=== PATIENT | female | born 1940 | race Caucasian/White ===

== ENCOUNTER 2016-07-14 00:31 | Emergency (ER) | payer MEDICARE, OTHER ==
[2016-07-14] MEDS ORDERED: metroNIDAZOLE 250 MG TABLET PO STA (02:22)
[2016-07-14] MEDS ORDERED: CIPROFLOXACIN 250 MG TABLET PO STA (02:22)
[2016-07-14] MEDS ORDERED: metroNIDAZOLE 250 MG TABLET PO ONE (02:26)
[2016-07-14] MEDS ORDERED: CIPROFLOXACIN 250 MG TABLET PO ONE (02:26)
== END 2016-07-14 02:41 | disposition home or self-care (01) ==
DX: K57.32 Diverticulitis of large intestine without perforation or abscess without bleeding (principal)
CPT/HCPCS: 36415; 74176; 80053; 81001; 83690; 85025; 87086; 99283; 99284; A9270

== ENCOUNTER 2016-12-27 07:39 | Outpatient (CLI) | payer MEDICARE, OTHER ==
[2016-12-27 14:01] LABS: BASOPHILS % (AUTO) 0.9 %; EOSINOPHILS # (AUTO) 0.1 10^3/uL (0.0-0.7); EOSINOPHILS % (AUTO) 1.9 %; HCT - HEMATOCRIT 41.6 % (37.0-47.0); HGB - HEMOGLOBIN 14.1 g/dL (12.0-16.0); LYMPHOCYTES # (AUTO) 1.5 10^3/uL (1.5-3.5); LYMPHOCYTES % (AUTO) 39.1 %; MEAN CORPUSCULAR HEMOGLOBIN 30.3 pg (27.0-31.0); MEAN CORPUSCULAR HGB CONC 33.9 g/dL (32.0-36.0); MEAN CORPUSCULAR VOLUME 89.2 fL (81.0-99.0); MONOCYTES # (AUTO) 0.3 10^3/uL (0.0-1.0); MONOCYTES % (AUTO) 7.1 %; NUCLEATED RED BLOOD CELLS AUTO 0.1 /100WBC; RED BLOOD COUNT 4.66 10^6/uL (4.20-5.40); RED CELL DISTRIBUTION WIDTH 14.1 % (12.0-15.0); UNCORRECTED WHITE BLOOD COUNT 3.9 x10^3/uL; WHITE BLOOD COUNT 3.9 x10^3/uL (4.8-10.8)
[2016-12-27 14:18] LABS: ALBUMIN/GLOBULIN RATIO 1.5 (1.0-2.2); BILIRUBIN,TOTAL 1.1 mg/dL (0.2-1.0); CREATININE 0.5 mg/dL (0.4-1.0); POTASSIUM 3.9 mmol/L (3.5-5.0); TOTAL PROTEIN 7.1 g/dL (6.7-8.2)
== END 2016-12-27 07:40 | disposition home or self-care (01) ==
LOC: LAB.N 07:39
PROVIDERS: ATTEND Internal Medicine
DX: K75.9 Inflammatory liver disease, unspecified (principal)
CPT/HCPCS: 36415; 80053; 85025

== ENCOUNTER 2017-01-04 09:33 | Outpatient (CLI) | payer MEDICARE, OTHER ==
--- NOTE | 2017-01-04 16:18 | XRAY Report ---
COMPLETE LUMBAR SPINE: 01/04/2017 CLINICAL INDICATION: Low back pain. COMPARISON: 05/18/2007. FINDINGS: AP, lateral, oblique, and coned down views of the lumbar spine demonstrate progression of degenerative disk and facet disease. Disk space narrowing is worst at L4-5. There is degenerative S-s haped scoliosis. No compression fracture is seen. There is grade 0 anterolisthesis of L4 on L5, due t o facet arthropathy. The bowel gas pattern is normal. IMPRESSION: PROGRESSION OF DEGENERATIVE DISK AND FACET DISEASE, NOW WITH S-SHAPED SCOLIOSIS. JOB #: [id number] EXT JOB #:[id number]
== END 2017-01-04 09:34 | disposition home or self-care (01) ==
LOC: DI 09:33
PROVIDERS: ATTEND Internal Medicine
DX: M51.36 Other intervertebral disc degeneration, lumbar region (principal); M47.9 Spondylosis, unspecified; M41.86 Other forms of scoliosis, lumbar region
CPT/HCPCS: 72110

== ENCOUNTER 2017-01-13 13:00 | Outpatient (CLI) | payer MEDICARE, OTHER ==
--- NOTE | 2017-01-13 16:05 | DEXA Report ---
DEXA SCAN: 01/13/2017 CLINICAL INDICATION: Postmenopausal. TECHNIQUE: Dual energy x-ray absorptiometry (DXA) was performed on a [employer] system. Regions measured are the AP spine, femoral neck, and, if needed, forearm. COMPARISON: None. In accordance with the International Society for Clinical Densitometry (ISCD) guidelines, data from previous exams may be reanalyzed using current recommendations and techniques. This is done to allow a more accurate basis for comparison with the current study. FINDINGS: The data for the lumbar spine is as follows: REGION BMD (g/cm/cm) T-SCORE Z-SCORE L1 1.064 -0.6 1.2 L2 1.232 0.3 2.0 L3 1.417 1.8 3.5 L4 1.203 0.0 1.7 TOTAL 1.231 0.4 2.1 NOTE: All evaluable vertebrae are used for classification. The data for the hip is as follows: REGION BMD (g/cm/cm) T-SCORE Z-SCORE Neck 0.926 -0.8 1.1 TOTAL 0.857 -1.2 0.6 NOTE: The femoral neck or total proximal femur, whichever is lowest, is used for classification. IMPRESSION: THE WHO CLASSIFICATION BASED ON THE INTERNATIONAL REFERENCE STANDARD IS OSTEOPENIA. THE FRACTURE RISK IS INCREASED. RECOMMENDATION: Patients with diagnosis of osteoporosis or osteopenia should have regular bone mineral density assessment. For those eligible for Medicare, routine testing is allowed once every 2 years. Testing frequency can be increased for patients who have rapidly progressing disease or for those who are receiving medical therapy to restore bone mass. COMMENT: World Health Organization (WHO) definitions for osteoporosis and osteopenia: NORMAL BMD: T-score at -1.0 or higher, fracture risk is low. OSTEOPENIA BMD: T-score between -1.0 and -2.5, fracture risk is increased. OSTEOPOROSIS BMD: T-score at -2.5 or lower, fracture risk high. National Osteoporosis Foundation recommends: 1. Obtain adequate dietary calcium (at least 1200 mg per day) and vitamin D (400 -800 international units per day). 2. Participate, as appropriate, in regular weightbearing and muscle- strengthening exercise. 3. Avoid tobacco use and reduce alcohol and caffeine intake. 4. For more detailed information see the website at www.NOF.org. MTDD
== END 2017-01-13 13:01 | disposition home or self-care (01) ==
LOC: DI 13:00
PROVIDERS: ATTEND Internal Medicine
DX: M85.88 Other specified disorders of bone density and structure, other site (principal)
CPT/HCPCS: 77080

== ENCOUNTER 2017-09-14 14:30 | Outpatient (CLI) | payer MEDICARE, OTHER ==
--- NOTE | 2017-09-14 16:51 | MRI Report ---
EXAM: MRI LUMBAR SPINE WITHOUT CONTRAST EXAM DATE: 09/14/2017 03:21 PM. CLINICAL HISTORY: Chronic low back pain. COMPARISON: Lumbar spine radiography from 01/04/2017. TECHNIQUE: Multiplanar, multisequence T1-weighted and fluid-sensitive sequences of the lumbar spine f rom T12 to S1 without contrast. Other: None. FINDINGS: Spinal Cord: The conus terminates at L1-L2. The conus medullaris and cauda equina are unremarkable. Alignment: Grade 1 anterolisthesis at L4-L5 by approximately 4 mm, and at L3-L4 by approximately 2 mm . Right lateral listhesis of L3 on L4 by approximately 5 mm. Left lateral listhesis of L1 on L2 by ap proximately 5 mm. Bone Marrow: Five gnl-eys-mlaagop lumbar vertebral bodies are assumed. There is an hemangioma within the L4 vertebral body. Disk Levels/Facets: L5-S1: Moderate lateral disk space narrowing. Mild central disk space narrowing. Rnob-vy-ovmnboie rig ht facet arthropathy. Mild right foraminal stenosis. No canal stenosis. L4-L5: Small left foraminal disk protrusion. Moderate to severe ligamentum flavum thickening. Moderat e left and severe right facet arthropathy. Small left facet joint effusion. Mild to moderate canal st enosis. Auue-zt-gmvzdpph right and mild left foraminal stenoses. L3-L4: Small posterior disk bulge. Small left foraminal and extraforaminal disk bulge. Moderate to se bella ligamentum flavum thickening. Moderate facet arthropathy. Small facet joint effusions. Mild-to-m oderate canal stenosis. Ytgn-xr-dfugkrez foraminal stenoses. L2-L3: Degenerative endplate changes, left more than right. Severe left-sided and moderate right-side d disk space narrowing. Small circumferential disk bulge/osteophyte complex. Moderate to severe ligam entum flavum thickening. Paic-fx-iqfntfba left and mild right facet arthropathy. Bjmy-ll-ommcauvw can al stenosis. Moderate to severe left and moderate right subarticular zone stenoses. Mild right and mo derate left foraminal stenoses. L1-L2: Moderate disk space narrowing. Small disk bulge. Moderate ligamentum flavum thickening. Mild-t o-moderate facet arthropathy. Mild canal stenosis. Mild left and fsra-ro-huhlxygx right foraminal sandee noses. T12-L1: Unremarkable. Musculature: Jgks-jc-ciuvkfap fatty atrophy of the posterior paraspinal process. Other: The partially visualized retroperitoneum is unremarkable. IMPRESSION: 1. Multilevel degenerative disk changes, ligamentum flavum thickening, facet arthropathy, and osteoph ytosis. There are varying degrees of stenoses. Please see above for level by level details. 2. Grade 1 degenerative anterolisthesis at L3-L4 and L4-L5. Right lateral listhesis of L3 on L4 and l eft lateral listhesis of L1 on L2. Comment: The following findings are so common in adults without low back pain that while we report th eir presence, they must be interpreted with caution and in the context of the clinical situation. (Re rd Drake et al, Spine 2001) Prevalence of findings in patients without low back pain: Disk degeneration (any evidence): 92% Disk desiccation/T2 signal loss: 83% Disk height loss: 56% Disk bulge: 64% Disk protrusion: 32% Annular tear/high intensity zone: 38% [facility] Referring Provider Line: [phone] SITE ID: [id number]
== END 2017-09-14 14:31 | disposition home or self-care (01) ==
LOC: DI 14:30
PROVIDERS: ATTEND Internal Medicine
DX: M54.5 Low back pain (principal); M51.36 Other intervertebral disc degeneration, lumbar region; M25.78 Osteophyte, vertebrae
CPT/HCPCS: 72148

== ENCOUNTER 2018-02-14 07:40 | Outpatient (CLI) | payer MEDICARE, OTHER ==
[2018-02-14 13:12] LABS: ALBUMIN 4.2 g/dL (3.2-5.5); ALBUMIN/GLOBULIN RATIO 1.5 (1.0-2.2); BILIRUBIN,TOTAL 0.9 mg/dL (0.2-1.0); CALCIUM 9.1 mg/dL (8.5-10.3); CREATININE 0.7 mg/dL (0.4-1.0)
== END 2018-02-14 07:41 | disposition home or self-care (01) ==
LOC: LAB.N 07:40
PROVIDERS: ATTEND Internal Medicine
DX: K75.9 Inflammatory liver disease, unspecified (principal); Z79.899 Other long term (current) drug therapy; K21.9 Gastro-esophageal reflux disease without esophagitis; M19.90 Unspecified osteoarthritis, unspecified site
CPT/HCPCS: 36415; 80053; 84443

== ENCOUNTER 2018-03-20 08:11 | Outpatient (CLI) | payer MEDICARE, OTHER ==
--- NOTE | 2018-03-21 10:15 | Mammography Report ---
Reason: SCRENNING MAMMO Procedure Date: 03/20/2018 Accession Number: [id number] / [id number] Procedure: ROBERT - Screening Mammo Dig Bilat CPT Code: FULL RESULT: EXAM: Screening Mammo Dig Bilat DATE: 03/20/2018 10:48 AM CLINICAL HISTORY: 77-year-old female with family history of breast cancer in a cousin in their 60s presents for screening. TECHNIQUE: Bilateral CC and MLO views were obtained. COMPARISON: 02/04/2016, 02/24/2014, 12/06/2011, 11/25/2010. FINDINGS: The breasts demonstrate scattered fibroglandular densities bilaterally. Typically benign vascular calcifications are noted bilaterally. No suspicious masses, clustered microcalcifications, or regions of architectural distortion are identified. IMPRESSION: Benign findings RECOMMENDATION: Routine annual screening unless otherwise clinically indicated. BIRADS CATEGORY 2: Benign findings STANDARD QUALIFYING STATEMENTS: 1. This examination was not reviewed with the aid of Computer-Aided Detection (CAD). 2. A negative or benign imaging report should not delay biopsy if clinically suspicious findings are present. Consider surgical consultation if warranted. More than 5% of cancers are not identified by imaging. 3. Dense breasts may obscure an underlying neoplasm. 4. This examination was reviewed without the aid of 3D breast imaging (tomosynthesis).
== END 2018-03-20 08:12 | disposition home or self-care (01) ==
LOC: DI 08:11
PROVIDERS: ATTEND Internal Medicine
DX: Z12.31 Encounter for screening mammogram for malignant neoplasm of breast (principal); Z80.3 Family history of malignant neoplasm of breast
CPT/HCPCS: 77067

== ENCOUNTER 2018-06-21 08:00 | Outpatient (CLI) | payer MEDICARE, OTHER ==
[2018-06-21 14:23] LABS: BASOPHILS % (AUTO) 0.5 %; EOSINOPHILS # (AUTO) 0.1 10^3/uL (0.0-0.7); EOSINOPHILS % (AUTO) 2.3 %; HGB - HEMOGLOBIN 14.1 g/dL (12.0-16.0); LYMPHOCYTES # (AUTO) 1.6 10^3/uL (1.5-3.5); LYMPHOCYTES % (AUTO) 44.7 %; MEAN CORPUSCULAR HEMOGLOBIN 30.3 pg (27.0-31.0); MEAN CORPUSCULAR VOLUME 91.8 fL (81.0-99.0); MEAN PLATELET VOLUME 8.7 fL (7.9-10.8); MONOCYTES # (AUTO) 0.2 10^3/uL (0.0-1.0); MONOCYTES % (AUTO) 6.6 %; NEUTROPHILS # (AUTO) 1.7 10^3/uL (1.5-6.6); NEUTROPHILS % (AUTO) 45.9 %; PLT - PLATELET COUNT 210 10^3/uL (130-450); RED BLOOD COUNT 4.66 10^6/uL (4.20-5.40); RED CELL DISTRIBUTION WIDTH 14.8 % (12.0-15.0); WHITE BLOOD COUNT 3.7 x10^3/uL (4.8-10.8)
[2018-06-21 14:28] LABS: CALCIUM 8.9 mg/dL (8.5-10.3); CREATININE 0.6 mg/dL (0.4-1.0)
[2018-06-21 14:35] LABS: BILIRUBIN,URINE NEGATIVE (NEGATIVE); GLUCOSE, URINE (UA) NEGATIVE (NEGATIVE); KETONES,URINE (UA) NEGATIVE (NEGATIVE); LEUKOCYTE ESTERASE, URINE SMALL (NEGATIVE); NITRITE,URINE NEGATIVE (NEGATIVE); OCCULT BLOOD,URINE NEGATIVE (NEGATIVE); PROTEIN,URINE NEGATIVE (NEGATIVE); UROBILINOGEN,URINE 0.2 (NORMAL) E.U./dL (NORMAL)
[2018-06-21 14:39] LABS: CLARITY,URINE CLEAR (CLEAR)
== END 2018-06-21 23:59 | disposition home or self-care (01) ==
LOC: LAB.N 08:00
PROVIDERS: ATTEND Orthopaedic Surgery
DX: Z01.818 Encounter for other preprocedural examination (principal); N39.0 Urinary tract infection, site not specified; Z51.81 Encounter for therapeutic drug level monitoring
CPT/HCPCS: 36415; 80048; 81003; 85025; 85610

== ENCOUNTER 2019-10-11 08:11 | Outpatient (CLI) | payer MEDICARE, OTHER ==
--- NOTE | 2019-10-11 16:33 | DEXA Report ---
Reason: MENOPAUSE Procedure Date: 10/11/2019 Accession Number: [id number] / [id number] Procedure: DEX - Dexa Spine and/or Hip CPT Code: Final Report FULL RESULT: PROCEDURE: Dexa Spine and/or Hip INDICATIONS: MENOPAUSE TECHNIQUE: Dual energy x-ray absorptiometry (DXA) was performed on a [employer] System. Regions measured are the AP Spine, femoral neck, and if needed forearm. COMPARISON: DEXA 01/13/2017 FINDINGS: Lumbar Spine: Bone Mineral Density 1.343 g/cm/cm,T score 1.4, compared to 0.4 on prior exam, normal Left forearm radius: Bone Mineral Density 0.427 g/cm/cm, T score -4.1 , osteoporosis. Prior DEXA did not include forearm. (T score greater or equal to -1.0: NORMAL) (T score from -1.1 to -2.4: OSTEOPENIA) (T score less than or equal to -2.5 to: OSTEOPOROSIS) Impression: 1. Improved bone mineral density within the lumbar spine. 2. Apparent prominent osteoporosis of the radius as above. It is noted on prior exam, measurement was obtained of the femur and femoral neck. There has been interval bilateral hip arthroplasties. Patients with diagnosis of osteoporosis or osteopenia should have regular bone mineral density assessment. For those eligible for Medicare, routine testing is allowed once every 2 years. Testing frequency can be increased for patients who have rapidly progressing disease or for those who are receiving medical therapy to restore bone mass. Reviewed by: Michelle Sofia MD on 10/11/2019 4:32 PM PDT Approved by: Michelle Sofia MD on 10/11/2019 4:32 PM PDT Station ID: [id number]
--- NOTE | 2019-10-11 17:01 | DEXA Report ---
Reason: MENOPAUSE Procedure Date: 10/11/2019 Accession Number: [id number] / [id number] Procedure: DEX - Dexa Forearm CPT Code: Final Report FULL RESULT: PROCEDURE: Dexa Forearm INDICATIONS: MENOPAUSE TECHNIQUE: Dual energy x-ray absorptiometry (DXA) was performed on a [employer] System. Regions measured are the AP Spine, femoral neck, and if needed forearm. COMPARISON: DEXA 01/13/2017 FINDINGS: Lumbar Spine: Bone Mineral Density 1.343 g/cm/cm,T score 1.4, compared to 0.4 on prior exam, normal Left forearm: Bone Mineral Density 0.427 g/cm/cm, T score -4.1, osteoporosis. Prior exam was compared to left hip. (T score greater or equal to -1.0: NORMAL) (T score from -1.1 to -2.4: OSTEOPENIA) (T score less than or equal to -2.5 to: OSTEOPOROSIS) Impression: 1. Improved bone density within the lumbar spine. 2. Apparent osteoporosis within the left forearm. Patients with diagnosis of osteoporosis or osteopenia should have regular bone mineral density assessment. For those eligible for Medicare, routine testing is allowed once every 2 years. Testing frequency can be increased for patients who have rapidly progressing disease or for those who are receiving medical therapy to restore bone mass. Reviewed by: Michelle Sofia MD on 10/11/2019 4:59 PM PDT Approved by: Michelle Sofia MD on 10/11/2019 4:59 PM PDT Station ID: [id number]
== END 2019-10-11 08:12 | disposition home or self-care (01) ==
LOC: DI 08:11
PROVIDERS: ATTEND Family Medicine
DX: Z13.820 Encounter for screening for osteoporosis (principal); M81.0 Age-related osteoporosis without current pathological fracture; Z96.643 Presence of artificial hip joint, bilateral; Z78.0 Asymptomatic menopausal state
CPT/HCPCS: 77080; 77081

== ENCOUNTER 2019-10-11 08:16 | Outpatient (CLI) | payer MEDICARE, OTHER ==
--- NOTE | 2019-10-14 12:39 | Mammography Report ---
BILATERAL DIGITAL SCREENING MAMMOGRAM 3D/2D: 10/11/2019 CLINICAL: Routine screening. Comparison is made to exams dated: 02/04/2016 mammogram, 02/24/2014 mammogram, and 03/20/2018 mammogr am - [facility]. There are scattered fibroglandular elements in both breasts. There are benign vascular calcifications in both breasts. No significant masses, calcifications, or other findings are seen in either breast. There has been no significant interval change. IMPRESSION: There is no mammographic evidence of malignancy. A 1 year screening mammogram is recommended. This exam was interpreted at Station ID: [id number]. NOTE: For mammograms, a report in lay terms will be sent to the patient. Approximately 15% of breast malignancies will not be visualized mammographically. In the management of a palpable breast mass, a negative mammogram must not discourage biopsy of a clinically suspicious lesion. Electronically Signed By: Akira Patiño M.D. slc/penrad:10/11/2019 12:15:17 ACR BI-RADS Category 2: Benign Finding(s) 3342F PARENCHYMAL PATTERN: (A) - The breast(s) demonstrate(s) scattered fibroglandular densities. BI-RADS CATEGORY: (2) - 2 RECOMMENDATION: (ANNUAL) - Recommend routine annual screening mammography. [id number] 1 year screening LATERALITY: (B)
== END 2019-10-11 08:17 | disposition home or self-care (01) ==
LOC: DI 08:16
PROVIDERS: ATTEND Family Medicine
DX: Z12.31 Encounter for screening mammogram for malignant neoplasm of breast (principal)
CPT/HCPCS: 77063; 77067

== ENCOUNTER 2020-03-04 19:43 | Outpatient (CLI) | payer MEDICARE, OTHER | END 2020-03-04 19:44 | disposition home or self-care (01) | LOC: COV 19:43 | PROVIDERS: ATTEND Family Medicine | DX: Z20.828 Contact with and (suspected) exposure to other viral communicable diseases (principal) ==

== ENCOUNTER 2022-04-14 08:57 | Outpatient (CLI) | payer MEDICARE, OTHER ==
--- NOTE | 2022-04-14 12:06 | DEXA Report ---
PROCEDURE: Dexa Spine and/or Hip INDICATIONS: OSTEOPOROSIS TECHNIQUE: Dual energy x-ray absorptiometry (DXA) was performed on a [employer] System. Regions measur ed are the AP Spine, femoral neck, and if needed forearm. Forearm was scanned. Patient has had bilate ral hip replacement. COMPARISON: 10/11/2019 FINDINGS: Lumbar Spine: Bone Mineral Density 1.320 g/cm/cm,T score 1.2, normal, change from previous -1.7% Left forearm middle third of the radius: Bone Mineral Density 0.603 g/cm/cm, T score -3.1, osteoporosis, change from previous 4.7% (T score greater or equal to -1.0: NORMAL) (T score from -1.1 to -2.4: OSTEOPENIA) (T score less than or equal to -2.5 to: OSTEOPOROSIS) Impression: 1. Osteoporosis puts the patient at a high-risk of fracture. 2. Increase in forearm bone mineral density compared to the prior study. Patients with diagnosis of osteoporosis or osteopenia should have regular bone mineral density assess ment. For those eligible for Medicare, routine testing is allowed once every 2 years. Testing frequ ency can be increased for patients who have rapidly progressing disease or for those who are receivin g medical therapy to restore bone mass. Reviewed by: Anju Rowe MD on 04/14/2022 12:05 PM PST Approved by: Anju Rowe MD on 04/14/2022 12:05 PM PST Station ID: [id number]
== END 2022-04-14 08:58 | disposition home or self-care (01) ==
LOC: DI 08:57
PROVIDERS: ATTEND Family Medicine
DX: M81.0 Age-related osteoporosis without current pathological fracture (principal); Z78.0 Asymptomatic menopausal state; Z96.643 Presence of artificial hip joint, bilateral